=== PATIENT | male | born 1975 | race Two or more races ===

== ENCOUNTER 2019-10-05 06:00 | Day surgery (SDC) | payer OTHER ==
[2019-10-05] MEDS ORDERED: PERCOCET 5-3251 EACH PO (10:05)
[2019-10-05] MEDS ORDERED: PEPCID AC20 MG PO (10:05)
[2019-10-05] MEDS ORDERED: NEXIUM 24HR20 MG PO (10:06)
[2019-10-05] MEDS ORDERED: ZOFRAN4 MG PO (10:07)
== END 2019-10-05 13:45 | disposition home or self-care (01) ==
LOC: CIR.AMB 06:00
PROVIDERS: ATTEND Surgery
DX: K80.10 Calculus of gallbladder with chronic cholecystitis without obstruction (principal)